=== PATIENT | male | born 1965 | race Caucasian/White ===

== ENCOUNTER 2018-12-03 23:51 | Emergency (ER) | payer OTHER ==
[~2018-12-03] VITALS: Ht 177.8 cm; Wt 89.8 kg
[2018-12-04] MEDS ORDERED: HYDROMORPHONE 2 MG/1 ML DISP.SYRIN ONE (00:09)
[2018-12-04] MEDS ORDERED: ONDANSETRON ODT 4 MG TAB.RAPDIS ONE ×2 (00:09→00:14)
--- NOTE | 2018-12-04 00:10 | NUR ---
Patient bib pvt ambulance. Patient resides at [facility]. haritha Mcneal, from [facility] stated that the patient is going to be transfered for high fever. Upon arriving to the department the EMT's mentioned that the patient had a sleuth of other issues going on not mentioned. Patient's chief complaint is for abdominal pain. Pain 10/10 in general abdominal area. Patient moaning, grasping site, facial grimacing due to the pain. Respiratory even and unlabored, no cough no sob. Patient stories inconsistent when asked different times. Patient mentioned not being able to move bowels then states he had moved his bowels last night. Patient stated he had blood in urine last night, that is clear now, but is having difficulty voiding. Patient in bed at lowest position, side rails upx2, call light within reach. Fall precautions implemented per protocol.
[2018-12-04] MEDS ORDERED: HYDROMORPHONE 1 MG/1 ML DISP.SYRIN IM ONE (00:15)
[2018-12-04] MEDS ORDERED: ONDANSETRON ODT 4 MG TAB.RAPDIS SL ONE (00:15)
[2018-12-04] MEDS ORDERED: FURO-152 PO (00:17)
[2018-12-04] MEDS ORDERED: POTA10TA10 PO (00:17)
[2018-12-04] MEDS ORDERED: [UNRECOGNIZED DRUG - REMARK] (00:17)
[2018-12-04] MEDS ORDERED: NALO4SPR NS (00:17)
[2018-12-04] MEDS ORDERED: HYDR-4354 PO (00:17)
[2018-12-04] MEDS ORDERED: METH750T3 PO (00:17)
[2018-12-04] MEDS ORDERED: ALPR0.25 PO (00:17)
[2018-12-04] MEDS ORDERED: DOCU-141 PO (00:17)
[2018-12-04] MEDS ORDERED: GABA600T12 PO (00:17)
[2018-12-04] MEDS ORDERED: SIMV20TA2 PO (00:17)
[2018-12-04] MEDS ORDERED: APIX5TAB PO (00:17)
[2018-12-04] MEDS ORDERED: ALBU8HFA4 INH (00:17)
[2018-12-04] MEDS ORDERED: CALC-883 PO (00:17)
[2018-12-04] MEDS ORDERED: FAMO-132 PO (00:17)
--- NOTE | 2018-12-04 00:35 | NUR ---
Patient is a hard stick, phleb tech unable to draw blood. Patient refusing to be poked another time, patient refusing blood draw.
--- NOTE | 2018-12-04 00:40 | NUR ---
Patient unable to void, refuses to provide urine at this time.
--- NOTE | 2018-12-04 00:48 | NUR ---
Patient transferred down to CT in stable condition.
[2018-12-04 01:03] LABS: CREATININE 1.2 mg/dL (0.6-1.3)
[2018-12-04 01:08] LABS: BILIRUBIN,DIRECT 0.2 mg/dL (0.0-0.2); BILIRUBIN,TOTAL 0.8 mg/dL (0.2-1.0); TOTAL PROTEIN, SERUM 8.2 g/dL (6.4-8.2)
--- NOTE | 2018-12-04 01:53 | NUR ---
[facility] contacted, spoke to marialuisa to arrange transport back to the facility, patient is medically cleared for discharge. Transport ETA [id number], trip #[id number]
--- NOTE | 2018-12-04 01:55 | NUR ---
[facility] called back, stated that they have another unit who can come and take the patient back. ETA 30min
--- NOTE | 2018-12-04 02:41 | NUR ---
David here to sp[place] moss picker patient. Discharge summary, copy of lab draw, and ct report included in discharge folder. Patient discharged to home in stable conditon. Written and verbal after care instructions given. Patient verbalizes understanding of instructions. Patient transported out via stretcher and two billing and insurance coordinator.
[2018-12-04 02:50] VITALS: BP 137/78
== END 2018-12-04 02:48 | disposition home or self-care (01) ==
LOC: ER 12-04
DX: G89.29 Other chronic pain (principal); R10.84 Generalized abdominal pain; R31.9 Hematuria, unspecified; J44.9 Chronic obstructive pulmonary disease, unspecified; K21.9 Gastro-esophageal reflux disease without esophagitis; E78.5 Hyperlipidemia, unspecified; Z88.1 Allergy status to other antibiotic agents; Z88.5 Allergy status to narcotic agent; Z88.8 Allergy status to other drugs, medicaments and biological substances; Z91.013 Allergy to seafood; Z79.899 Other long term (current) drug therapy
CPT/HCPCS: 36415; 74176; 80048; 80076; 83690; 96372; 99284; J1170; A4663; Q0162